=== PATIENT | male | born 1950 | race Caucasian/White ===

== ENCOUNTER 2022-05-28 20:02 | Emergency (ER) | payer OTHER ==
[~2022-05-28] VITALS: Ht 172.7 cm; Wt 73.0 kg
[2022-05-28 20:04] VITALS: BP 150/84
== END 2022-05-28 22:54 | disposition left against medical advice (07) ==
LOC: ER 20:02
DX: Z53.21 Procedure and treatment not carried out due to patient leaving prior to being seen by health care provider (principal)